=== PATIENT | male | born 2000 | race Caucasian/White ===

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

== ENCOUNTER 2020-08-18 09:21 | Emergency (ER) | payer OTHER ==
[~2020-08-18] VITALS: Ht 175.3 cm; Wt 105.7 kg
[2020-08-18] MEDS ORDERED: CELEBREX100 MG PO (11:40)
[2020-08-18] MEDS ORDERED: DECADRON6 MG PO (11:40)
== END 2020-08-18 11:52 | disposition home or self-care (01) ==
LOC: ER 09:21 → EMR PED 09:34 → ER 09:34 → EMR PED 11:52
DX: R07.89 Other chest pain (principal)

== ENCOUNTER 2021-04-01 12:22 | Emergency (ER) | payer OTHER ==
[~2021-04-01] VITALS: Ht 180.3 cm; Wt 106.1 kg
[~2021-04-01 12:22] MED LIST: CELEBREX100 MG PO; DECADRON6 MG PO
== END 2021-04-01 21:04 | disposition home or self-care (01) ==
LOC: EMR PED 12:22
DX: N23 Unspecified renal colic (principal); K57.30 Diverticulosis of large intestine without perforation or abscess without bleeding; N20.0 Calculus of kidney

== ENCOUNTER 2021-07-18 12:44 | Emergency (ER) | payer OTHER ==
[~2021-07-18] VITALS: Ht 175.3 cm; Wt 114.3 kg
[2021-07-18] MEDS ORDERED: KETO10TA2 PO (15:59)
== END 2021-07-18 16:08 | disposition home or self-care (01) ==
LOC: ER 12:44
DX: R07.89 Other chest pain (principal)